=== PATIENT | male | born 1980 | race Caucasian/White ===

== ENCOUNTER 2018-08-09 07:49 | Emergency (ER) | payer OTHER ==
[~2018-08-09] VITALS: Ht 170.2 cm; Wt 79.4 kg
[~2018-08-09 07:49] MED LIST: OSEL75CA PO; SINGULAIR10 MG PO; TUSSI PRES-B L120 M1 PO; [UNRECOGNIZED DRUG - OTHER]; [UNRECOGNIZED DRUG - OTHER]; [UNRECOGNIZED DRUG - OTHER]
[2018-08-09] MEDS ORDERED: KETO10TA2 PO (11:07)
[2018-08-09] MEDS ORDERED: NORFLEX100MG PO (11:07)
[2018-08-09] MEDS ORDERED: MEDROLPACK PO (11:11)
== END 2018-08-09 11:47 | disposition home or self-care (01) ==
LOC: ER 07:49
DX: M54.5 Low back pain (principal)

== ENCOUNTER 2020-04-17 21:36 | Emergency (ER) | payer OTHER ==
[~2020-04-17] VITALS: Ht 170.2 cm; Wt 77.1 kg
[~2020-04-17 21:36] MED LIST changes: +KETO10TA2 PO; +MEDROLPACK PO; +NORFLEX100MG PO
== END 2020-04-18 11:14 | disposition home or self-care (01) ==
LOC: ER 21:36 → CPU-OBS 22:15 → ER 04-18 11:14
DX: I48.0 Paroxysmal atrial fibrillation (principal); R55 Syncope and collapse; R42 Dizziness and giddiness; R11.2 Nausea with vomiting, unspecified; I16.0 Hypertensive urgency; I10 Essential (primary) hypertension
CPT/HCPCS: G0378; G0379; 70450; 93005

== ENCOUNTER 2020-09-15 00:44 | Emergency (ER) | payer OTHER ==
[~2020-09-15] VITALS: Ht 170.2 cm; Wt 77.1 kg
[2020-09-15] MEDS ORDERED: TORADOL60 MG (00:52)
[2020-09-15] MEDS ORDERED: ORPHENADRI30 MG/1 M1 IM (01:00)
[2020-09-15] MEDS ORDERED: ZIPSOR25 MG (01:00)
[2020-09-15] MEDS ORDERED: PERCOCET 5-3251 EACH PO (04:21)
[2020-09-15] MEDS ORDERED: PREDNISONE20 MG PO (04:21)
[2020-09-15] MEDS ORDERED: VOLTAREN-XR100 MG PO (04:21)
[2020-09-15] MEDS ORDERED: SKELAXIN800 MG PO (04:21)
== END 2020-09-15 04:59 | disposition home or self-care (01) ==
LOC: ER 00:44
DX: M51.26 Other intervertebral disc displacement, lumbar region (principal)

== ENCOUNTER → 2025-02-12 | Emergency (ER) | payer OTHER ==
[~2025-02-12] VITALS: Ht 170.2 cm; Wt 81.6 kg
[~2025-02-12] MED LIST changes: +KETOROLAC TROMETHAMINE 60 MG VIAL IM ONE; +KETOROLAC TROMETHAMINE 60 MG VIAL IM STA; +ORPHENADRI30 MG/1 M1 IM; +ORPHENADRINE CITRATE 30 MG/ML AMPUL IM STA; +ORPHENADRINE CITRATE 30 MG/ML AMPUL ONE; +PERCOCET 5-3251 EACH PO; +PREDNISONE20 MG PO; +SKELAXIN800 MG PO; +TORADOL60 MG; +VOLTAREN-XR100 MG PO; +ZIPSOR25 MG
== END | disposition home or self-care (01) ==
LOC: ER 12:41
DX: S30.0XXA Contusion of lower back and pelvis, initial encounter (principal); W18.39XA Other fall on same level, initial encounter; Y93.E1 Activity, personal bathing and showering; Y92.012 Bathroom of single-family (private) house as the place of occurrence of the external cause; Y99.9 Unspecified external cause status